=== PATIENT | female | born 1960 | race Caucasian/White ===

== ENCOUNTER 2018-12-06 01:20 | Emergency (ER) | payer OTHER ==
[~2018-12-06] VITALS: Ht 170.2 cm; Wt 87.3 kg
[2018-12-06 02:50] LABS: BASOPHILS # (AUTO) 0.03 x10^3/uL (0-0.1); BASOPHILS % (AUTO) 0 % (0-1); EOSINOPHILS # (AUTO) 0.22 x10^3/uL (0-0.4); EOSINOPHILS % (AUTO) 3 % (1-7); LYMPHOCYTES # (AUTO) 1.33 x10^3/uL (1-3.4); LYMPHOCYTES % (AUTO) 18 % (22-44); MD NO; MEAN CORPUSCULAR HEMOGLOBIN 30.3 pg (27.0-34.8); MEAN CORPUSCULAR HGB CONC 32.5 g/dL (32.4-35.8); MEAN CORPUSCULAR VOLUME 93.3 fL (80-100); MEAN PLATELET VOLUME 9.6 fL (7.4-10.4); MONOCYTES # (AUTO) 0.56 x10^3/uL (0.2-0.8); MONOCYTES % (AUTO) 8 % (2-9); NEUTROPHILS # (AUTO) 5.36 x10^3/uL (1.8-6.8); NEUTROPHILS % (AUTO) 71 % (42-75); PLATELET COUNT 303 x10^3/uL (130-400); RED BLOOD COUNT 4.15 x10^6/uL (3.82-5.3); RED CELL DISTRIBUTION WIDTH 14.7 % (9.6-15.2)
--- NOTE | 2018-12-06 02:59 | NUR ---
PT AMBULATED TO RESTROOM WITH STEADY GAIT.
[2018-12-06 03:00] LABS: MICROSCOPIC NOT IND
[2018-12-06 03:03] LABS: CULTURE INDICATED? NO
[2018-12-06 03:03] LABS: ALBUMIN 4.2 g/dL (3.4-5.0); ANION GAP 4 mmol/L (5-15); CHLORIDE 106 mmol/L (98-107)
[2018-12-06 03:10] LABS: ALANINE AMINOTRANSFERASE 23 U/L (12-78); ALKALINE PHOSPHATASE 68 U/L (45-117); BILIRUBIN,TOTAL 0.3 mg/dL (0.2-1.0); CREATININE 0.88 mg/dL (0.55-1.02); FREE T4 (FREE THYROXINE) 0.63 ng/dL (0.76-1.46); TOTAL PROTEIN 8.2 g/dL (6.4-8.2); TROPONIN I < 0.015 ng/mL (0.000-0.045)
[2018-12-06 03:41] VITALS: BP 168/86
== END 2018-12-06 04:04 | disposition home or self-care (01) ==
LOC: ED 03:59
DX: R42 Dizziness and giddiness (principal); E89.0 Postprocedural hypothyroidism
CPT/HCPCS: 36415; 71045; 80053; 81003; 84439; 84443; 84484; 85025; 93005; 99284